=== PATIENT | male | born 1960 | race Caucasian/White ===

== ENCOUNTER → 2019-06-08 10:24 | Outpatient (BNVA) | payer MEDICARE, SELFPAY | PROVIDERS: Family Provider Nurse Practitioner Family; Visit Provider Nurse Practitioner Family | DX: J44.0 Chronic obstructive pulmonary disease with (acute) lower respiratory infection (principal); J06.9 Acute upper respiratory infection, unspecified; R51 Headache; R05 Cough | CPT/HCPCS: 87804 ==

== ENCOUNTER → 2019-06-30 16:12 | Outpatient (BNVA) | payer MEDICARE, SELFPAY | PROVIDERS: Family Provider Nurse Practitioner Family; Visit Provider Nurse Practitioner Family | DX: J44.0 Chronic obstructive pulmonary disease with (acute) lower respiratory infection (principal); R06.02 Shortness of breath | CPT/HCPCS: 87400 ==

== ENCOUNTER 2019-08-08 13:39 | Inpatient (IN) | payer MEDICARE, SELFPAY ==
[2019-08-08] VITALS (15 sets, daily range): BP systolic 117–135; BP diastolic 71–89; PULSE 70–107; RESP 16–19; TEMP 36.9–37.1; O2SAT 94–98; BMI 31.8
--- NOTE | 2019-08-08 13:50 | W.ED.FALL ---
HPI - Fall General: Chief Complaint: Fall Stated Complaint: fall Time Seen by Provider: 08/08/19 13:50 History of Present Illness: HPI Narrative: Pt states he fell because he got lightheaded and fell. He states over the past week he has been short of breath more than normal and he had to turn his o2 up from 3L to 4L. He states he has been coughing more and has had green sputum. He has felt feverish. He has had sick contacts. Doesnt think anyone has had COVID-19. He states he has pain in his shins since his fall but he always has that pain. His son found him on the floor and stated he seemed more lethargic. complaint: fall Fall from: standing Fall witnessed: no Place fall occurred: home Loss of consciousness: None Prolonged down time: unclear Symptoms prior to fall: lightheadedness and dizziness Location of injury: other (bilat shins) Severity: moderate Severity scale (1-10): 5 Quality: aching Associated symptoms-after fall: Reports difficulty walking, lightheadedness and short of breath; Denies abdominal pain or chest pain Review of Systems General: Reports: 10 or more systems reviewed and unremarkable except in HPI and below Const: Reports: fever, fatigue and malaise ENMT: Denies: throat pain Card: Reports: lightheadedness; Denies: chest pain or palpitations Resp: Reports: shortness of breath, productive cough and change in phlegm color GI: Denies: abdominal pain, nausea, vomiting, diarrhea, constipation or blood in stool Musc: Reports: extremity pain (chronic) Skin/Breast: Denies: rash Neuro: Reports: difficulty walking and other (lethargy) [facility] ED PFSH: Medical History COPD (chronic obstructive pulmonary disease) Hypertension Surgical History History of right hip replacement History of vasectomy Social History Smoking and tobacco status: current every day smoker Second hand smoke exposure: Yes Lives independently: Yes Household members: none Physical Exam Const: COMMON NORMALS: oriented x3; negative for alert EXAM LIMITATIONS: altered mental status (somnolence) GENERAL APPEARANCE: cooperative ORIENTATION/CONSCIOUSNESS: Yes oriented to person, Yes oriented to place and Yes oriented to time Neck/C-Spine: COMMON NORMALS: full ROM, no lymphadenopathy and supple CERVICAL SPINE: Yes cervical ROM normal, Yes normal cervical lordosis and No pain with cervical ROM Chest: COMMONS NORMALS: inspection of chest normal and palpation of chest normal CHEST: Yes symmetrical chest wall rise Resp: COMMON NORMALS: no use of accessory muscles EFFORT & INSPECTION: Yes able to speak in complete sentences, Yes respiratory distress (mild) and Yes pursed lip breathing AUSCULTATION: diminished lung sounds diffuse Cardio: COMMON NORMALS: regular rate and regular rhythm RATE: regular rate RHYTHM: regular rhythm GI: COMMON NORMALS: normal to inspection, nondistended, normoactive bowel sounds, soft to palpation and non-tender AUSCULTATION: Yes normoactive bowel sounds PALPATION: Yes soft : COMMON NORMALS: Yes no CVA tenderness BLADDER/KIDNEY EXAM: Yes no CVA tenderness and No CVA tenderness Back/Pelvis: COMMON NORMALS: no CVA tenderness and thoracic and lumbar spine normal to inspection GENERAL BACK: No CVA tenderness LUMBAR SPINE/LOWER BACK: Yes normal to inspection Extremity: GENERAL: Yes normal exam except as noted RIGHT LOWER EXTREMITY: Yes ankle joint (mild tenderness to papation but he states that is chronic, no sign of injur) Neuro: COMMON NORMALS: oriented x3 SENSORIUM/ORIENTATION: No alert, Yes oriented to person, Yes oriented to place and Yes oriented to time Procedures Laceration Laceration 1: Site: face (bridge of nose) Size (cm): 2 Description: linear Depth: simple, single layer Local Anesthetic: lidocaine 1% Amount of anesthesia used (mL): 2 Pre-repair: wound explored and irrigated extensively Skin layer closed with: nylon Size (cm): 4-0 Number of sutures: 2 Technique: simple, interrupted Course Vital Signs: Vital signs: Vital Signs Temperature 98.4 F 08/08/19 13:40 Pulse Rate 103 H 08/08/19 16:52 Respiratory Rate 16 08/08/19 15:49 Blood Pressure 117/71 08/08/19 13:40 Pulse Oximetry 95 08/08/19 16:52 MDM - Fall MDM Narrative: Medical decision making narrative: Pt is being testted for covid 19, his ph shows he is acidotic at 7.29. I have started him on bipap with a special viral filter , and he will need to be admitted to icu, he has a copd exac . Pt got up to go to the bathroom and fell on the floor and cracked his nose, laceration to brige of nose. he is alert and states he tripped and fell. I wll scan his head. I have sewed his lac up. Lab Data: Attestation: I reviewed the patient's lab results. Labs: Lab Results 08/08/19 08/08/19 08/08/19 Range/Units 13:15 13:15 14:53 WBC 13.0 H (4.0-10.0) 10^3/ uL RBC 4.91 (4.1-5.3) 10^6/u L Hgb 15.2 (11.7-16.6) g/dL Hct 48.6 (42.0-52.0) % MCV 99.0 H (80-94) fL MCH 31.0 (28.0-34.0) pg MCHC 31.3 (30.0-36.0) g/dL RDW 11.9 L (12.1-15.1) % Plt Count 182 (130-400) 10^3/c mm MPV 10.5 H (7.4-10.4) fL Neut % (Auto) 86.7 % Lymph % (Auto) 5.8 % [place] % (Auto) 6.6 % Eos % (Auto) 0.2 % Baso % (Auto) 0.3 % Neut # (Auto) 11.3 H (1.8-7.7) 10^3/u L Lymph # (Auto) 0.8 (0.8-4.8) 10^3/u L [place] # (Auto) 0.9 (0.2-0.9) 10^3/u L Eos # (Auto) 0.0 (0.0-0.8) 10^3/u L Baso # (Auto) 0.0 (0.0-0.1) 10^3/u L Nucleated RBC % (a uto) 0 % Nucleated RBCs # 0.0 /100WBC Specimen Type Arterial Sample Site Radial, right ABG pH 7.29 L (7.35-7.45) ABG pCO2 80.2 H* (35-45) mmHg ABG pO2 88.2 (80.0-100.0) mmH g ABG HCO3 38.3 H (22-26) mmol/L ABG O2 Saturation 97.1 ABG Base Excess 8.0 H (-2.0-2.0) mmol/ L Niranjan Test Pos A-a O2 Gradient 71.0 H (5-10) mmHg Hematocrit 46.6 (42-52) % Hgb O2 Saturation 95.2 (95-100) % Carboxyhemoglobin 1.1 (0.4-20.1) %THgb Methemoglobin 0.9 (0.4-1.5) % Total Hemoglobin 15.2 (14-18) g/dL Ionized Calcium 1.2 (1.1-1.4) mmol/L O2 Delivery Device Nc O2 Liters/Min 4.0 % FiO2 36.0 % Exhibit Electrician ID ed Sodium Cancelled 141.0 Potassium Cancelled 4.6 Chloride Cancelled Carbon Dioxide Cancelled Anion Gap Cancelled BUN Cancelled Creatinine Cancelled GFR Calculation Cancelled Glucose Cancelled 95.0 Calculated Osmolal ity Cancelled Calcium Cancelled Total Bilirubin Cancelled AST Cancelled ALT Cancelled Alkaline Phosphata se Cancelled Total Protein Cancelled Albumin Cancelled Globulin Cancelled Influenza Type A A g (Negative) Influenza Type B A g (Negative) 08/08/19 Range/Units 15:30 WBC (4.0-10.0) 10^3/ uL RBC (4.1-5.3) 10^6/u L Hgb (11.7-16.6) g/dL Hct (42.0-52.0) % MCV (80-94) fL MCH (28.0-34.0) pg MCHC (30.0-36.0) g/dL RDW (12.1-15.1) % Plt Count (130-400) 10^3/c mm MPV (7.4-10.4) fL Neut % (Auto) % Lymph % (Auto) % [place] % (Auto) % Eos % (Auto) % Baso % (Auto) % Neut # (Auto) (1.8-7.7) 10^3/u L Lymph # (Auto) (0.8-4.8) 10^3/u L [place] # (Auto) (0.2-0.9) 10^3/u L Eos # (Auto) (0.0-0.8) 10^3/u L Baso # (Auto) (0.0-0.1) 10^3/u L Nucleated RBC % (a uto) % Nucleated RBCs # /100WBC Specimen Type Sample Site ABG pH (7.35-7.45) ABG pCO2 (35-45) mmHg ABG pO2 (80.0-100.0) mmH g ABG HCO3 (22-26) mmol/L ABG O2 Saturation ABG Base Excess (-2.0-2.0) mmol/ L Niranjan Test A-a O2 Gradient (5-10) mmHg Hematocrit (42-52) % Hgb O2 Saturation (95-100) % Carboxyhemoglobin (0.4-20.1) %THgb Methemoglobin (0.4-1.5) % Total Hemoglobin (14-18) g/dL Ionized Calcium (1.1-1.4) mmol/L O2 Delivery Device O2 Liters/Min % FiO2 % Exhibit Electrician ID Sodium Potassium Chloride Carbon Dioxide Anion Gap BUN Creatinine GFR Calculation Glucose Calculated Osmolal ity Calcium Total Bilirubin AST ALT Alkaline Phosphata se Total Protein Albumin Globulin Influenza Type A A g Negative (Negative) Influenza Type B A g Negative (Negative) Imaging Data^: CXR: Radiologist's impression: XRay Report Signed Patient: Jihan Petit #: [id number] : 9Acct#:[id number] Age/Sex: 58 / MADM Date: 08/08/19 Loc: [facility]/Bed: Attending Dr: Ordering Provider/Ordering MD: Thania Rubio DO Date of Service: 08/08/19 Procedure(s): XR chest 1V portable [id number] Accession Number(s): [id number] Report Number: [id number] WS: [id number] CHEST XRAY TECHNIQUE: Portable chest. CLINICAL INFORMATION: pneumonia COMPARISON: July 07, 2017 FINDINGS: Heart: Normal cardiac silhouette. Lungs: Slight interstitial infiltrates in the lung bases laterally similar in appearance to 2018 and likely chronic. No focal pneumonia. Bones: Normal visualized bony structures. XR/XR chest 1V portable [id number] IMPRESSION: Mild chronic emphysematous changes with chronic appearing interstitial thickening in the lung bases. No focal pneumonia. Dictated By:Mio Kwon MD Signed By:Mio Kwon MDSigned Date/Time:08/08/19 6348 Discharge Plan Discharge Patient Disposition: Admitted As Inpatient Admit Provider: Ashlyn Covarrubias Clinical Impression: Falls frequently COPD (chronic obstructive pulmonary disease) Qualifiers: COPD type: COPD with acute exacerbation Qualified Code(s): J44.1 - Chronic obstructive pulmonary disease with (acute) exacerbation Head injury Qualifiers: Encounter type: initial encounter Qualified Code(s): S09.90XA - Unspecified injury of head, initial encounter Laceration of nose Qualifiers: Encounter type: initial encounter Qualified Code(s): S01.21XA - Laceration without foreign body of nose, initial encounter Respiratory failure, unspecified with hypercapnia Qualifiers: Chronicity: acute Qualified Code(s): J96.02 - Acute respiratory failure with hypercapnia Respiratory failure, unspecified with hypoxia Qualifiers: Chronicity: acute on chronic Qualified Code(s): J96.21 - Acute and chronic respiratory failure with hypoxia Condition: Stable Referrals: Key Voss FNP [Family Provider] - Coding Level of Care Code ED Continuing Education Instructor for Chg Fwd Exam Comprehensive
--- NOTE | 2019-08-08 14:01 | XR_ITS ---
WS: [id number] CHEST XRAY TECHNIQUE: Portable chest. CLINICAL INFORMATION: pneumonia COMPARISON: July 07, 2017 FINDINGS: Heart: Normal cardiac silhouette. Lungs: Slight interstitial infiltrates in the lung bases laterally similar in appearance to 2018 and likely chronic. No focal pneumonia. Bones: Normal visualized bony structures. XR/XR chest 1V portable [id number] IMPRESSION: Mild chronic emphysematous changes with chronic appearing interstitial thickeni ng in the lung bases. No focal pneumonia.
[2019-08-08 14:41] LABS: Basophils % 0.3 %; Eosinophils % 0.2 %; Hematocrit 48.6 % (42.0-52.0); Hemoglobin 15.2 g/dL (11.7-16.6); Lymphocytes # 0.8 10^3/uL (0.8-4.8); Lymphocytes % 5.8 %; Mean Corpuscular HGB Conc 31.3 g/dL (30.0-36.0); Mean Platelet Volume 10.5 fL (7.4-10.4); Monocytes # 0.9 10^3/uL (0.2-0.9); Monocytes % 6.6 %; Neutrophils # 11.3 10^3/uL (1.8-7.7); Neutrophils % 86.7 %; Nucleated Red Blood Cells % 0 %; Platelet Count 182 10^3/cmm (130-400); Red Blood Count 4.91 10^6/uL (4.1-5.3); Red Cell Distribution Width 11.9 % (12.1-15.1)
[2019-08-08] MEDS: albuterol 8 gm MDI 2 PUFF INHALATION ×3 (14:50→23:20)
[2019-08-08 15:05] LABS: ABG PH Result 7.29 (7.35-7.45); Arterial Blood Gas Hematocrit 46.6 % (42-52); Blood Gas Allen Test Pos; Blood Gas Sample Site Radial, right; Blood Gas Sample Type Arterial; Carboxyhemoglobin 1.1 %THgb (0.4-20.1); HCO3 ABG 38.3 mmol/L (22-26); HGB O2 Sat 95.2 % (95-100); Ionized Calcium Level - ABG 1.2 mmol/L (1.1-1.4); Methemoglobin 0.9 % (0.4-1.5); Oxygen Device NC; Oxygen Saturation ABG 97.1; PO2 ABG 88.2 mmHg (80.0-100.0); Potassium Level - ABG 4.6 mmol/L (3.5-5.0); Total Hemoglobin 15.2 g/dL (14-18)
[2019-08-08 15:06] LABS: ABG PCO2 80.2 mmHg (35-45)
--- NOTE | 2019-08-08 15:39 | CT_ITS ---
WS: [id number] CT HEAD TECHNIQUE: Noncontrast CT of the head obtained from the skullbase to the vertex. CLINICAL INFORMATION: trauma COMPARISON: None. DLP: 1471.[address] scans at [facility] use at least one of these dose optimization techniques: automat ed exposure control; mA and/or kV adjustment per patient size (includes targeted exams where dose is matched to clinical indication); or iterative reconstruction. FINDINGS: No evidence of intracranial hemorrhage or mass effect. Ventricular system and basal cisterns are hernandez nt. Mild small vessel changes with moderate parenchymal volume loss. Incidental retrocerebellar arach noid cyst. Normal perera-white differentiation. Mild mucosal thickening in the paranasal sinuses. Left to right nasal septal deviation. Mastoid air c ells are well aerated. CT/CT head wo con* [id number] IMPRESSION: 1. No evidence of intracranial hemorrhage or mass effect. 2. Mild small vessel changes. Moderate parenchymal volume loss. 3. No acute Intracranial findings.
[2019-08-08] MEDS: ipratropium-albuterol 3 mL Neb INHALATION (15:53)
[2019-08-08 16:24] LABS: Influenza A by IFA Negative (Negative)
[2019-08-08 16:25] LABS: Influenza B by IFA Negative (Negative)
[2019-08-08 16:37] LABS: ABG PH Result 7.33 (7.35-7.45)
[2019-08-08 16:38] LABS: BIPAP Y; HCO3 ABG 39.8 mmol/L (22-26); Oxygen Device BIPAP; Oxygen Saturation ABG 95.8; PO2 ABG 74.9 mmHg (80.0-100.0); Potassium Level - ABG 4.6 mmol/L (3.5-5.0)
[2019-08-08 16:39] LABS: Arterial Blood Gas Hematocrit 47.9 % (42-52)
[2019-08-08 17:09] LABS: Lactate (Lactic Acid level) 1.9 mmol/L (0.5-2.2)
[2019-08-08] MEDS: piperacillin-tazobactam 3.375 GM in sodium chloride 0.9% (plus) 50 ML IV (17:37)
[2019-08-08] MEDS: tetanus-dipt-pertussis 0.5 mL SDV IM (17:37)
--- NOTE | 2019-08-08 17:47 | P.HP_ITS ---
Providers/Chief Complaint Admitting Physician: Ashlyn Covarrubias MD Chief Complaint: ACUTE COPD EXACERBATION,HYPERCAPNIA, RESP FAILURE History of Present Illness Jh Petit is a 58 year old male with a PMH oxygen dependent COPD who is usually on 4 L/min at home. He was in his usual state of health until about 1 week ago when he has just not been feeling right . History is obtained by talking to the daughter as the patient is unable to give any details at this time while being on a BiPAP. Yesterday, the patient's daughter noted that he was more lethargic than usual and somewhat disoriented. This morning when some of his coworkers went to his house to get him to sign a check, he appeared to be more tremulous, disoriented and confused and was afterwards brought to the ER. Upon presentation here he was noted to have a fall which resulted in a laceration across his nose. This has since been corrected. ABG was notable for pH of 7.23 and a PCO2 of 80 subsequently which he was placed on a BiPAP. Since being placed on a BiPAP he appears to be more awake and alert at this time. Repeat blood gas has been drawn which shows a pH of 7.33 and PCO2 of 76. His daughter reports that since beginning of this year he has been having more frequent bouts of COPD exacerbation and has recently required 2 courses of levofloxacin in mid May and in mid June. He usually follows with his campus interviews intern at [place] Dr. Tom who prescribed him Daliresp 500 mics daily, however the patient felt that it made him have flulike symptoms and it is unclear if he was consistently taking this medication. Of note he was asked to taper down his steroids as he started the Daliresp, however the daughter does not believe he has actually tapered his steroids and is probably on prednisone 20 mg daily at this present time. There is no reported history of fever. Cough and expectoration appeared to be at his usual baseline. He does not have any known sick contacts, however he works in an [employer] shop and has been going to work intermittently where he has been in touch with other people. COVID-19 testing has been sent from the E . Influenza antigen test is negative. Chest x-ray does not show any gross consolidation. His medication history shows he is on 40 mg of Lasix daily, however this does not appear to be for CHF. Last echocardiogram dates back to 2017 and showed an LVEF of 55 to 60% and grade 1 diastolic dysfunction. Of note it also showed normal right ventricular size and systolic function and pressure. Right atrium was normal in size. He denies any complaints of chest pain. Last known cardiac history. Stress test in 2017 no significant coronary ischemia. Review of Systems General: Reports: 10 or more systems reviewed and unremarkable except in HPI and below Const: Denies: fever, chills or body aches Eyes: Denies: change in vision, blurry vision or photophobia ENMT: Denies: throat pain, enlarged tonsils, painful swallowing, hoarseness or nasal congestion Card: Reports: shortness of breath on exertion and shortness of breath when lying down; Denies: chest pain, palpitations, irregular heart rhythm, edema, swelling of feet/ankles, lightheadedness or pre-syncope Resp: Reports: shortness of breath; Denies: productive cough, non-productive cough, wheezing, stridor, pain on inspiration, change in phlegm color, coughing up blood or chest congestion GI: Denies: abdominal pain, nausea, vomiting, vomiting blood, coffee grounds in vomit, difficulty swallowing, heartburn/indigestion, diarrhea, constipation, cramping, change in stool character, blood in stool or black tarry stool : Denies: flank pain, painful urination, urinary frequency, urinary urgency, urinary hesitancy or blood in urine Musc: Denies: neck pain, back pain, extremity pain, joint swelling, joint warmth or deformity Neuro: Denies: headache, numbness in extremities, weakness in extremities, changes in sensation, difficulty walking, frequent falls, dizziness, vertigo, behavioral changes, slurred speech or seizure-like activity Psych: Denies: anxiety, depression, suicidal ideation or homicidal ideation Endo: Denies: excessive urination, excessive thirst, tired all the time, cold intolerance or hot flashes Kenny/Lymph: Denies: easy bruising or easy bleeding Medications/Allergies Home Medications Medication Instructions Recorded Confirmed Last Taken Type budesonide-formoterol HFA 160 2 puff INHALATION BID #10.2 gm 05/22/19 06/30/19 Unknown Rx mcg-4.5 mcg/actuation aerosol inhaler budesonide-formoterol HFA 160 2 puff INHALATION BID 06/08/19 06/30/19 Unknown History mcg-4.5 mcg/actuation aerosol inhaler lisinopril 2.5 mg tablet 2.5 mg PO DAILY 06/08/19 06/30/19 Unknown History ipratropium 0.5 mg-albuterol 3 mg 3 ml INHALATION QID #180 ml 06/30/19 06/30/19 Unknown Rx (2.5 mg base)/3 mL nebulization soln levofloxacin 500 mg tablet 500 mg PO DAILY #7 tab 06/30/19 06/30/19 Unknown Rx tamsulosin 0.4 mg capsule 0.8 mg PO DAILY #90 cap 07/05/19 Unknown Rx furosemide 40 mg tablet 40 mg PO QAM #30 tab 07/27/19 Unknown Rx prednisone 20 mg tablet 20 mg PO DAILY #90 tab 08/04/19 Unknown Rx albuterol sulfate 90 mcg/actuation 2 puff INHALATION Q4H PRN #18 gm 08/07/19 Unknown Rx aerosol inhaler Allergies Allergy/AdvReac Type Severity Reaction Status Date / Time azithromycin [From Zithromax] Allergy Unknown Verified 08/08/19 13:47 PFSH Acute PFSH: Medical History COPD (chronic obstructive pulmonary disease) Hypertension Surgical History History of right hip replacement History of vasectomy Social History Smoking and tobacco status: current every day smoker Second hand smoke exposure: Yes Lives independently: Yes Household members: none Vitals/I&O/Wt Last Vital Signs Temp 98.4 F 08/08/19 13:40 Pulse 103 H 08/08/19 16:52 Resp 16 08/08/19 15:49 BP 117/71 08/08/19 13:40 Pulse Ox 95 08/08/19 16:52 Weight last 48 hrs Weight 97.976 kg Physical Exam Narrative: EXAM NARRATIVE: GEN: Awake, alert, currently on Bipap via face mask, no acute distress HEENT: lacertaion across bridge of nose CVS: S1S2 N RS: B/L conducted sounds Abd: Soft, nt/nd , bs+ DIESEL SERVICE JOURNEYMAN: no focal neuro deficits Data : 08/08/19 13:15 08/08/19 13:15 Micro: Microbiology 08/08/19 15:43 Blood Culture - Preliminary Blood SPECIMEN COLLECTED 08/08/19 15:30 Blood Culture - Preliminary Blood SPECIMEN COLLECTED A&P Assessment and plan (1) COPD exacerbation: Status: Acute (2) Hypertension: Status: Acute (3) Respiratory failure, unspecified with hypercapnia: Status: Acute Qualifiers: Chronicity: acute Qualified Code(s): J96.02 - Acute respiratory failure with hypercapnia (4) Laceration of nose: Status: Acute Qualifiers: Encounter type: initial encounter Qualified Code(s): S01.21XA - Laceration without foreign body of nose, initial encounter (5) Falls frequently: Status: Acute Additional A&P Information Admit to ICU with isolation precautions # Acute on chronic COPD exacerbation - baseline uses 4lpm NC at all times - currently on Bipap 2/2 hypercapneic respiratory failure likely as a result of COPD exacerbation - Albuterol/ipratropium q4h - Budesonide inhalation BID -Methylprednisone 40mg iv q8h - doxycycline 100mg BID x 3-5 days - COVID 19 CAREER TECHNOLOGY TEACHER swab to rule out - CXR without gross consolidation # hypercapneic respiratory failure 2/2 COPD exacerbation BIPAP as needed now, continues, wean as needed RT eval and treat Typically uses CPAP at night # fall due to unsteady gait, likely contributed by C02 narcosis [address] head without acute intracranial findings PT eval and treat # HTN: continue home dose lisinopril 2.5mg po qd #BPH: continue Flomax DVT ppx: lovenox Code status: DNR/DNI, okay for ICU admission and pressors if needed. Discussed with sebastián Kennedy Medical Necessity Statement*: Anticipate > 2 midnight admission for hypercapneic respiratory failure Coding Level of Care Code Acute Wire Winding Machine Operator for Chg Fwd Diagnoses COPD exacerbation J44.1 Hypertension I10 Respiratory failure, unspecified with hypercapnia J96.02 Chronicity: acute Laceration of nose S01.21XA Encounter type: initial encounter Falls frequently R29.6
[2019-08-08 17:55] LABS: Alanine Aminotransferase 11 U/L (0-41); Albumin Level 4.3 g/dL (3.5-5.2); Alkaline Phosphatase 93 IU/L (40-130); Anion Gap 14.8 (5-19); Aspartate Amino Transferase 12 U/L (0-40); Blood Urea Nitrogen 19 mg/dL (8-23); Calcium 9.2 mg/dL (8.5-10.5); Carbon Dioxide 37 mmol/L (22-29); Chloride 95 mmol/L (98-107); Glomerular Filtration Rate 169.6 mL/min (90-130); Glucose 105 mg/dL (65-115); NT Pro B Type Natriuretic Pept 83 pg/mL (0-125); Osmolality Calculated 291 mOsm/kg (285-295); Potassium 4.8 mmol/L (3.5-5.1); Sodium 142 mmol/L (136-145); Total Bilirubin 0.7 mg/dL (0.15-1.2); Total Protein 6.3 g/dL (6.6-8.7)
[2019-08-08 19:13] LABS: Glucose Point of Care 91 mg/dL (70-110)
[2019-08-08] MEDS: enoxaparin 40 mg/0.4 mL Syringe SUBCUT (19:15)
[2019-08-08] MEDS: FUROsemide 10 mg/mL SDV 2mL 20 MG IVP (19:15)
[2019-08-08] MEDS: budesonide 0.5 mg/2 mL Neb INHALATION (20:17)
[2019-08-08 20:33] LABS: Glucose Point of Care 101 mg/dL (70-110)
--- NOTE | 2019-08-08 21:11 | PC.NURSE ---
Patient states that right leg weakness is present at baseline.
[2019-08-09] VITALS (18 sets, daily range): BP systolic 101–143; BP diastolic 67–93; PULSE 88–115; RESP 15–25; TEMP 36.6–37; O2SAT 90–96
--- NOTE | 2019-08-09 02:21 | PC.NURSE ---
Patient repositioned at suggestion of RN, patient declines to turn laterally and states I sleep on my back.
--- NOTE | 2019-08-09 02:23 | PC.NURSE ---
Patient declines PRN medication for knee pain at this time
[2019-08-09] MEDS: albuterol 8 gm MDI 2 PUFF INHALATION ×4 (04:32→23:15)
[2019-08-09 04:40] LABS: Basophils % 0.1 %; Hematocrit 46.8 % (42.0-52.0); Hemoglobin 14.6 g/dL (11.7-16.6); Lymphocytes # 0.3 10^3/uL (0.8-4.8); Mean Corpuscular HGB Conc 31.2 g/dL (30.0-36.0); Mean Corpuscular Hemoglobin 30.1 pg (28.0-34.0); Mean Corpuscular Volume 96.5 fL (80-94); Mean Platelet Volume 9.9 fL (7.4-10.4); Monocytes # 0.1 10^3/uL (0.2-0.9); Monocytes % 0.4 %; Neutrophils # 14.1 10^3/uL (1.8-7.7); Neutrophils % 97.2 %; Nucleated Red Blood Cells % 0 %; Platelet Count 163 10^3/cmm (130-400); Red Blood Count 4.85 10^6/uL (4.1-5.3); Red Cell Distribution Width 11.7 % (12.1-15.1); White Blood Count 14.5 10^3/uL (4.0-10.0)
[2019-08-09 04:50] LABS: ABG PH Result 7.38 (7.35-7.45); Arterial Blood Gas Hematocrit 46.3 % (42-52); Base Excess ABG 11.1 mmol/L (-2.0-2.0); Blood Gas Allen Test Pos; Blood Gas Sample Site Radial, right; Blood Gas Sample Type Arterial; HCO3 ABG 39.5 mmol/L (22-26); Oxygen Device OXY MASK; PO2 ABG 86.1 mmHg (80.0-100.0)
[2019-08-09 05:05] LABS: Alanine Aminotransferase 11 U/L (0-41); Alkaline Phosphatase 85 IU/L (40-130); Anion Gap 16.6 (5-19); Aspartate Amino Transferase 12 U/L (0-40); Blood Urea Nitrogen 19 mg/dL (8-23); Carbon Dioxide 36 mmol/L (22-29); Chloride 93 mmol/L (98-107); Globulin 1.9 g/dL (1.3-4.6); Glomerular Filtration Rate 219.4 mL/min (90-130); Glucose 134 mg/dL (65-115); Osmolality Calculated 290 mOsm/kg (285-295); Potassium 4.6 mmol/L (3.5-5.1); Sodium 141 mmol/L (136-145); Total Bilirubin 0.6 mg/dL (0.15-1.2); Total Protein 5.9 g/dL (6.6-8.7)
[2019-08-09 05:31] LABS: ABG PCO2 67.5 mmHg (35-45)
[2019-08-09 05:37] LABS: Procalcitonin 0.07 ng/mL (0-0.5)
[2019-08-09 07:39] LABS: Alveolar-Arterial Oxygen Gradi 87.9 mmHg (5-10); HGB O2 Sat 94.4 % (95-100); Ionized Calcium Level - ABG 1.2 mmol/L (1.1-1.4); Methemoglobin 0.5 % (0.4-1.5); Total Hemoglobin 15.6 g/dL (14-18)
[2019-08-09 08:21] LABS: Glucose Point of Care 132 mg/dL (70-110)
[2019-08-09] MEDS: lisinopril 2.5 mg Tablet PO (08:37)
[2019-08-09] MEDS: doxycycline 100 mg Tablet PO ×2 (08:37→18:07)
[2019-08-09] MEDS: tamsulosin 0.4 mg Capsule 0.8 MG PO (08:37)
[2019-08-09 10:31] LABS: Glucose Point of Care 129 mg/dL (70-110)
--- NOTE | 2019-08-09 10:31 | PC.RESP ---
Pulmonary Rehab and Smoking Cessation information sent to patient along with a schedule of classes.
--- NOTE | 2019-08-09 14:52 | PM.PN ---
Subjective Subjective: Interval history: improved today, ABG with pc02 at 67, ph normalized. Off bipap since overnight. Currently on 3.5lpm via oxymask, doing well Medications: Reviewed: Yes Vitals/I&O/Wt Last Vital Signs Temp 98.6 F 08/09/19 14:00 Pulse 96 08/09/19 14:00 Resp 17 08/09/19 14:00 BP 128/91 08/09/19 14:00 Pulse Ox 91 08/09/19 14:00 08/08/19 08/09/19 08/09/19 22:59 06:59 14:59 Intake Total 120 / 120 Output Total 600 / 600 400 / 400 Balance -600 / -600 -280 / -280 Weight last 48 hrs Weight 94.574 kg Weight 97.976 kg Physical Exam Narrative: EXAM NARRATIVE: GEN: Awake, alert and oriented, no acute distress CVS: S1S2 N RS: CTA B/L Abd: Soft, nt/nd , bs+ CUSTOMER SOLUTIONS ARCHITECT: no focal neuro deficits Data : 08/09/19 04:10 08/09/19 04:10 Micro: Microbiology 08/08/19 15:43 Blood Culture - Preliminary Blood SPECIMEN COLLECTED 08/08/19 15:30 Blood Culture - Preliminary Blood SPECIMEN COLLECTED A&P Assessment and plan (1) COPD exacerbation: Status: Acute (2) Hypertension: Status: Acute (3) Respiratory failure, unspecified with hypercapnia: Status: Acute Qualifiers: Chronicity: acute Qualified Code(s): J96.02 - Acute respiratory failure with hypercapnia (4) Laceration of nose: Status: Acute Qualifiers: Encounter type: initial encounter Qualified Code(s): S01.21XA - Laceration without foreign body of nose, initial encounter (5) Falls frequently: Status: Acute Additional A&P Information Admit to ICU with isolation precautions # Acute on chronic COPD exacerbation - baseline uses 4lpm NC at all times - required bipap yesterday, off since overnight, doing well - Albuterol/ipratropium q4h - Budesonide inhalation BID -Methylprednisone 40mg iv q8h---> taper to q12h - doxycycline 100mg BID x 3-5 days - COVID 19 ruled out - CXR without gross consolidation # hypercapneic respiratory failure 2/2 COPD exacerbation BIPAP as needed now, continues, wean as needed RT eval and treat Typically uses CPAP at night # fall due to unsteady gait, likely contributed by C02 [address] head without acute intracranial findings PT eval and treat Hip x ray for pain # HTN: continue home dose lisinopril 2.5mg po qd #BPH: continue Flomax DVT ppx: lovenox Code status: DNR/DNI, okay for ICU admission and pressors if needed. Discussed with daughter Dipesh Kennedy Medical Necessity Statement*: COPD exacerbation with hypercapneic resp failure, improving today, transfer out of ICU Coding Level of Care Code Acute Rack Puncher for g Fwd Diagnoses COPD exacerbation J44.1 Hypertension I10 Respiratory failure, unspecified with hypercapnia J96.02 Chronicity: acute Laceration of nose S01.21XA Encounter type: initial encounter Falls frequently R29.6
--- NOTE | 2019-08-09 14:55 | XR_ITS ---
WS: [id number] HIPS BILATERAL TECHNIQUE: 5 views bilateral hips Including pelvis CLINICAL INFORMATION: fall COMPARISON: None. FINDINGS: Normal-appearing right KARAN appears well seated. No evidence of hardware loosening. Mild degenerative arthritis left hip with joint space narrowing. XR/XR hip BI 3-4V wo/w pel [id number] IMPRESSION: 1. Normal-appearing right KARAN. 2. Mild degenerative arthritis left hip, no acute fractures
[2019-08-09 15:17] LABS: Blood Gas Allen Test Pos; Blood Gas Sample Site Radial, right; Blood Gas Sample Type Arterial
[2019-08-09 15:20] LABS: ABG PCO2 76.3 mmHg (35-45)
--- NOTE | 2019-08-09 15:29 | PC.NURSE ---
report called to SANJEEV Perez. Patient will be transferred to room 259-1
--- NOTE | 2019-08-09 15:51 | PC.NURSE ---
patient taken to room 259-1 via wheelchair
[2019-08-09 17:27] LABS: Glucose Point of Care 130 mg/dL (70-110)
[2019-08-09] MEDS: enoxaparin 40 mg/0.4 mL Syringe SUBCUT (17:41)
[2019-08-09] MEDS: FUROsemide 10 mg/mL SDV 2mL 20 MG IVP (18:25)
--- NOTE | 2019-08-09 19:05 | PC.NURSE ---
Introduction of staff and report received, aidet.
[2019-08-09 20:39] LABS: Glucose Point of Care 217 mg/dL (70-110)
[2019-08-09] MEDS: budesonide 0.5 mg/2 mL Neb INHALATION (23:15)
[2019-08-10] VITALS (17 sets, daily range): BP systolic 92–129; BP diastolic 56–81; PULSE 69–146; RESP 16–20; TEMP 36.6–36.9; O2SAT 90–96
[2019-08-10] MEDS: albuterol 8 gm MDI 2 PUFF INHALATION ×5 (02:59→20:02)
[2019-08-10 05:36] LABS: Basophils % 0.1 %; Hematocrit 41.5 % (42.0-52.0); Hemoglobin 13.8 g/dL (11.7-16.6); Lymphocytes # 0.3 10^3/uL (0.8-4.8); Lymphocytes % 2.7 %; Mean Corpuscular HGB Conc 33.3 g/dL (30.0-36.0); Mean Corpuscular Hemoglobin 31.4 pg (28.0-34.0); Mean Corpuscular Volume 94.5 fL (80-94); Mean Platelet Volume 10.2 fL (7.4-10.4); Monocytes # 0.3 10^3/uL (0.2-0.9); Monocytes % 2.8 %; Neutrophils # 11.5 10^3/uL (1.8-7.7); Neutrophils % 93.9 %; Nucleated Red Blood Cells % 0 %; Platelet Count 157 10^3/cmm (130-400); Red Blood Count 4.39 10^6/uL (4.1-5.3); Red Cell Distribution Width 11.9 % (12.1-15.1); White Blood Count 12.3 10^3/uL (4.0-10.0)
[2019-08-10 05:59] LABS: Alanine Aminotransferase 12 U/L (0-41); Albumin Level 3.8 g/dL (3.5-5.2); Alkaline Phosphatase 67 IU/L (40-130); Anion Gap 15.2 (5-19); Aspartate Amino Transferase 11 U/L (0-40); Blood Urea Nitrogen 24 mg/dL (8-23); Calcium 9.1 mg/dL (8.5-10.5); Carbon Dioxide 36 mmol/L (22-29); Chloride 91 mmol/L (98-107); Globulin 2.4 g/dL (1.3-4.6); Glomerular Filtration Rate 169.6 mL/min (90-130); Glucose 159 mg/dL (65-115); Osmolality Calculated 286 mOsm/kg (285-295); Potassium 4.2 mmol/L (3.5-5.1); Sodium 138 mmol/L (136-145); Total Bilirubin 0.6 mg/dL (0.15-1.2); Total Protein 6.2 g/dL (6.6-8.7)
[2019-08-10 06:30] LABS: Glucose Point of Care 136 mg/dL (70-110)
[2019-08-10] MEDS: lisinopril 2.5 mg Tablet PO (08:18)
[2019-08-10] MEDS: tamsulosin 0.4 mg Capsule 0.8 MG PO (08:18)
[2019-08-10] MEDS: doxycycline 100 mg Tablet PO ×2 (08:18→17:03)
[2019-08-10] MEDS: budesonide 0.5 mg/2 mL Neb INHALATION ×2 (08:30→20:01)
[2019-08-10 08:36] LABS: Coronavirus Lab Test PTC SEE COMMENTS
[2019-08-10 11:13] LABS: Glucose Point of Care 219 mg/dL (70-110)
--- NOTE | 2019-08-10 16:00 | ECG_ITS ---
Measurements Intervals [place] Rate: 133 P: CT: 0 QRS: 15 QRSD: 80 T: 46 QT: 276 QTc: 411 ATRIAL FIBRILLATION WITH RAPID VENTRICULAR RESPONSE ABNORMAL RHYTHM ECG Compared to ECG 07/08/2017 05:55:04 Sinus rhythm no longer present Electronically Signed On 08-10-2019 18:13:39 CDT by Mehreen Polanco M.D. [id number]
[2019-08-10] MEDS: metoprolol tartrate 1 mg/1 mL SDV 5 mL 2.5 MG IV (16:08)
--- NOTE | 2019-08-10 16:21 | PC.NURSE ---
Tachycardia patients telemetry are showing tachycardia, upon checking on patient he was asymptomatic, with no pain, sob and resting in bed watching TV. I checked telemetry wires and changed box. Obtained manual HR which was 100. obtained manual VS 100/62 with HR 148 and pulse ox 94% on O2. Dr. Covarrubias notified and gave VORB of 2.5mg Metoprolol IVP and EKG and check in 15 min from administration recheck BP and if not resolved give another dose of 2.5 mg Metoprolol IVP. ONI, SANJEEV
--- NOTE | 2019-08-10 16:26 | P.PN_ITS ---
Subjective Subjective: Interval history: Breathing improved significantly today. Has some wheezing on auscultation but states he feels close to his baseline. 02 sat between 93-95% on 4lpm NC (baseline). This afternoon developed episode of A fib with RVR. patient is unsure if he has a past h/o same in the past. Denies any chest pain, dyspnea or papitations during this episode. BP stable. Medications: Reviewed: Yes Vitals/I&O/Wt Last Vital Signs Temp 98.2 F 08/10/19 15:54 Pulse 146 H 08/10/19 15:54 Resp 17 08/10/19 15:54 BP 102/64 08/10/19 15:54 Pulse Ox 93 08/10/19 15:54 08/10/19 08/10/19 08/10/19 06:59 14:59 22:59 Intake Total 240 / 360 980 / 980 Balance 240 / -710 980 / 980 Weight last 48 hrs Weight 92.59 kg Weight 94.574 kg Physical Exam Narrative: EXAM NARRATIVE: GEN: Awake, alert and oriented, no acute distress CVS: S1S2 N RS: Scattered B/L wheezing all areas Abd: Soft, nt/nd , bs+ TRAFFIC RATE COMPUTER: no focal neuro deficits EXT: No LE edema Data : 08/10/19 04:48 08/10/19 04:48 Micro: Microbiology 08/08/19 15:43 Blood Culture - Preliminary Blood NEGATIVE TO DATE 08/08/19 15:30 Blood Culture - Preliminary Blood NEGATIVE TO DATE A&P Assessment and plan (1) COPD exacerbation: Status: Acute (2) Hypertension: Status: Acute (3) Respiratory failure, unspecified with hypercapnia: Status: Acute Qualifiers: Chronicity: acute Qualified Code(s): J96.02 - Acute respiratory failure with hypercapnia (4) Laceration of nose: Status: Acute Qualifiers: Encounter type: initial encounter Qualified Code(s): S01.21XA - Laceration without foreign body of nose, initial encounter (5) Falls frequently: Status: Acute Additional A&P Information # Acute on chronic COPD exacerbation - baseline uses 4lpm NC at all times - no longer needing Bipap today, uses CPAP at night - Albuterol/ipratropium q4h - Budesonide inhalation BID -Methylprednisone 40mg iv q12h , will continue to taper - doxycycline 100mg BID x 3-5 days - COVID 19 ruled out - CXR without gross consolidation # hypercapneic respiratory failure 2/2 COPD exacerbation BIPAP as needed RT eval and treat Typically uses CPAP at night # fall due to unsteady gait, likely contributed by C02 narcosis CT head without acute intracranial findings PT eval and treat Hip x ray for pain Face laceration healing well over nose # A fib with RVR s/p 5mg IVP metoprolol without response, started on cardizem 30mg po q6h Holding offf on starting a/c for now given recurrent falls # HTN: continue home dose lisinopril 2.5mg po qd #BPH: continue Flomax DVT ppx: lovenox Code status: DNR/DNI, okay for ICU admission and pressors if needed. Discussed with daughter Dipesh Kennedy Medical Necessity Statement*: developed Afib with RVR today Coding Level of Care Code Acute Make Up Editor for [facility] Fwd Diagnoses COPD exacerbation J44.1 Hypertension I10 Respiratory failure, unspecified with hypercapnia J96.02 Chronicity: acute Laceration of nose S01.21XA Encounter type: initial encounter Falls frequently R29.6
[2019-08-10 16:51] LABS: Glucose Point of Care 120 mg/dL (70-110)
[2019-08-10] MEDS: metoprolol tartrate 1 mg/1 mL SDV 5 mL 5 MG (17:02)
[2019-08-10] MEDS: enoxaparin 40 mg/0.4 mL Syringe SUBCUT (17:03)
[2019-08-10] MEDS: dilTIAZem 30 mg Tablet PO (18:06)
[2019-08-10 19:21] LABS: Troponin(5th) Baseline 16 ng/mL (0-15)
[2019-08-10 20:42] LABS: Troponin 5 2HR 15.83 ng/mL (0-15)
[2019-08-10 20:43] LABS: Troponin 5 2HR Delta -0.17 ABS# (0-10)
[2019-08-10 20:45] LABS: Glucose Point of Care 149 mg/dL (70-110)
[2019-08-11] VITALS (12 sets, daily range): BP systolic 105–124; BP diastolic 65–76; PULSE 69–109; RESP 16–20; TEMP 36.2–36.8; O2SAT 91–97
[2019-08-11] MEDS: dilTIAZem 30 mg Tablet PO ×3 (00:20→12:04)
[2019-08-11 01:02] LABS: Hematocrit 41.9 % (42.0-52.0); Hemoglobin 13.6 g/dL (11.7-16.6); Lymphocytes # 0.3 10^3/uL (0.8-4.8); Lymphocytes % 2.1 %; Mean Corpuscular HGB Conc 32.5 g/dL (30.0-36.0); Mean Corpuscular Hemoglobin 30.8 pg (28.0-34.0); Mean Corpuscular Volume 94.8 fL (80-94); Mean Platelet Volume 10.1 fL (7.4-10.4); Monocytes # 0.7 10^3/uL (0.2-0.9); Monocytes % 4.7 %; Neutrophils # 13.1 10^3/uL (1.8-7.7); Neutrophils % 92.8 %; Nucleated Red Blood Cells % 0 %; Platelet Count 143 10^3/cmm (130-400); Red Blood Count 4.42 10^6/uL (4.1-5.3); Red Cell Distribution Width 11.9 % (12.1-15.1); White Blood Count 14.1 10^3/uL (4.0-10.0)
[2019-08-11 01:14] LABS: Alanine Aminotransferase 13 U/L (0-41); Albumin Level 3.7 g/dL (3.5-5.2); Alkaline Phosphatase 69 IU/L (40-130); Anion Gap 11.1 (5-19); Aspartate Amino Transferase 12 U/L (0-40); Blood Urea Nitrogen 21 mg/dL (8-23); Calcium 8.9 mg/dL (8.5-10.5); Carbon Dioxide 36 mmol/L (22-29); Chloride 93 mmol/L (98-107); Globulin 2.2 g/dL (1.3-4.6); Glomerular Filtration Rate 169.6 mL/min (90-130); Glucose 198 mg/dL (65-115); Osmolality Calculated 284 mOsm/kg (285-295); Potassium 4.1 mmol/L (3.5-5.1); Sodium 136 mmol/L (136-145); Total Bilirubin 0.5 mg/dL (0.15-1.2); Total Protein 5.9 g/dL (6.6-8.7)
[2019-08-11 01:17] LABS: Troponin 5 6HR 15.09 ng/mL (0-15)
[2019-08-11 01:26] LABS: Troponin 5 6HR Delta -0.91 ng/L (0-12)
[2019-08-11 06:32] LABS: Glucose Point of Care 144 mg/dL (70-110)
[2019-08-11] MEDS: budesonide 0.5 mg/2 mL Neb INHALATION ×2 (08:21→21:27)
[2019-08-11] MEDS: albuterol 8 gm MDI 2 PUFF INHALATION ×3 (08:21→15:49)
--- NOTE | 2019-08-11 09:15 | PC.SOCIAL ---
IMM Page 2 of IMM given to patient and number to [employer] [facility] advantage plan provided. Initialed, dated, and timed and placed in chart.
[2019-08-11] MEDS: doxycycline 100 mg Tablet PO ×2 (09:47→18:51)
[2019-08-11] MEDS: tamsulosin 0.4 mg Capsule 0.8 MG PO (09:48)
[2019-08-11 11:21] LABS: Glucose Point of Care 207 mg/dL (70-110)
--- NOTE | 2019-08-11 13:52 | P.PN_ITS ---
Subjective Subjective: Interval history: Patient developed an episode of A. fib with RVR last evening with heart rate going up to 160s 170s. He was given metoprolol IV pushes however without any significant response. He has since been started on p.o. Cardizem and currently heart rate has ranged between 60-90. Intermittently when he moves heart rate does jump up to 150s and 160s with activity. Troponins drawn yesterday were negative. But additional history obtained today from patient and his daughter, he does have a history of atrial fibrillation going back at least 3 years. He endorses feeling intermittent palpitations, however has not been on any rate limiting medications. He states he was started on a medication about 3 years ago but then his refills ran out and he never took the medication again. He is unsure if he has ever been on anticoagulation. His pharmacy records dates back to 2018 and did not show that he was ever prescribed an anticoagulation in the past. Last echocardiogram from 2017 was with LVEF of 55 to 60% without wall motion abnormalities. Patient remains mostly asymptomatic during these.. He does not know if some of his falls may potentially correlate with episodic palpitations. Medications: Reviewed: Yes Vitals/I&O/Wt Last Vital Signs Temp 97.8 F 08/11/19 11:17 Pulse 94 08/11/19 12:31 Resp 16 08/11/19 12:31 BP 114/70 08/11/19 11:17 Pulse Ox 94 08/11/19 12:31 08/10/19 08/11/19 08/11/19 22:59 06:59 14:59 Intake Total 960 / 1940 120 / 120 Output Total 750 / 750 515 / 1265 Balance 210 / 1190 -515 / 675 120 / 120 Weight last 48 hrs Weight 93.157 kg Weight 92.59 kg Physical Exam Narrative: EXAM NARRATIVE: GEN: Awake, alert and oriented, no acute distress, sitting in bed, breathing comfortably. HEENT currently on a nasal cannula at 3.5 L/min, which is close to his baseline. CVS: S1S2 N RS: Bilateral inframaxillary areas with scattered crypts. Bilateral infrascapular areas with movement wheezing. Abd: Soft, nt/nd , bs+ ASSISTANT SITE MANAGER: no focal neuro deficits Extremities no gross pitting edema. Data : 08/11/19 00:35 08/11/19 00:35 A&P Assessment and plan (1) COPD exacerbation: Status: Acute (2) Hypertension: Status: Acute (3) Respiratory failure, unspecified with hypercapnia: Status: Acute Qualifiers: Chronicity: acute Qualified Code(s): J96.02 - Acute respiratory failure with hypercapnia (4) Laceration of nose: Status: Acute Qualifiers: Encounter type: initial encounter Qualified Code(s): S01.21XA - Laceration without foreign body of nose, initial encounter (5) Falls frequently: Status: Acute (6) Atrial fibrillation with rapid ventricular response: Status: Acute Additional A&P Information # Acute on chronic COPD exacerbation - baseline uses 4lpm NC at all times - no longer needing Bipap today, uses CPAP at night - Albuterol/ipratropium q4h - Budesonide inhalation BID -Methylprednisone 40mg iv q12h , will continue to taper. machine overhauler to po prednisone 40mg today - doxycycline 100mg BID x 3-5 days - COVID 19 ruled out - CXR without gross consolidation - Wheezing and crepts on exam today, lasix was held yesetrday due to borderline BP. Iv lasix 20mg now # hypercapneic respiratory failure 2/2 COPD exacerbation BIPAP as needed RT eval and treat Typically uses CPAP at night # fall due to unsteady gait, likely contributed by C02 narcosis CT head without acute intracranial findings PT eval and treat Hip x ray for pain without any fracture Face laceration healing well over nose, remove sutures at 7 days # A fib with RVR s/p 5mg IVP metoprolol without response, started on cardizem 30mg po q6h Heart rate better controlled now mostly between 69-90 for the most part however with mild activity increases to 1 50- 160 bpm. We will titrate up the Cardizem 60 mg every 6 hours p.o. and then switch to sustained-release upon discharge. His Chads2-vasc score is 1 for HTN, will suggest antiplatelet for now, holf off on a/c , kenisha given h/o falls and current laceration # HTN: continue home dose lisinopril 2.5mg po qd #BPH: continue Flomax DVT ppx: lovenox Code status: DNR/DNI, okay for ICU admission and pressors if needed. Discussed with daughter Dipesh and patient Attestations Medical Necessity Statement*: Atrial fibrillation with RVR Coding Level of Care Code Acute Lawn Care Worker for g Fwd Diagnoses COPD exacerbation J44.1 Hypertension I10 Respiratory failure, unspecified with hypercapnia J96.02 Chronicity: acute Laceration of nose S01.21XA Encounter type: initial encounter Falls frequently R29.6 Atrial fibrillation with rapid ventricular response I48.91
[2019-08-11] MEDS: FUROsemide 10 mg/mL SDV 2mL 20 MG IVP (15:14)
[2019-08-11 17:09] LABS: Glucose Point of Care 124 mg/dL (70-110)
[2019-08-11] MEDS: enoxaparin 40 mg/0.4 mL Syringe SUBCUT (18:51)
[2019-08-11] MEDS: dilTIAZem 60 mg Tablet PO (18:51)
[2019-08-11 21:09] LABS: Glucose Point of Care 154 mg/dL (70-110)
[2019-08-11] MEDS: ipratropium-albuterol 3 mL Neb INHALATION (21:27)
[2019-08-12] VITALS (11 sets, daily range): BP systolic 105–124; BP diastolic 68–75; PULSE 65–98; RESP 17–20; TEMP 36.6–36.8; O2SAT 91–96
[2019-08-12] MEDS: dilTIAZem 60 mg Tablet PO ×3 (00:06→12:29)
[2019-08-12] MEDS: ipratropium-albuterol 3 mL Neb INHALATION ×2 (01:21→05:09)
[2019-08-12 06:19] LABS: Glucose Point of Care 138 mg/dL (70-110)
[2019-08-12] MEDS: albuterol 8 gm MDI 2 PUFF INHALATION ×2 (07:33→11:29)
[2019-08-12] MEDS: budesonide 0.5 mg/2 mL Neb INHALATION (07:34)
[2019-08-12] MEDS: predniSONE 20 mg Tablet 40 MG PO (09:32)
[2019-08-12] MEDS: doxycycline 100 mg Tablet PO (09:32)
[2019-08-12] MEDS: aspirin 325 mg Tablet PO (09:32)
[2019-08-12] MEDS: tamsulosin 0.4 mg Capsule 0.8 MG PO (09:32)
--- NOTE | 2019-08-12 11:24 | P.DS_ITS ---
Discharge Providers Date of Admission: 08/08/19 15:46 Date of Discharge: August 12, 2019 Attending Provider at Admission: Ashlyn Covarrubias MD Attending Provider at Discharge: Ashlyn Covarrubias MD Diagnoses at Discharge Discharge Diagnosis (1) COPD exacerbation: Status: Acute (2) Hypertension: Status: Acute (3) Respiratory failure, unspecified with hypercapnia: Status: Acute Qualifiers: Chronicity: acute Qualified Code(s): J96.02 - Acute respiratory failure with hypercapnia (4) Laceration of nose: Status: Acute Qualifiers: Encounter type: initial encounter Qualified Code(s): S01.21XA - Laceration without foreign body of nose, initial encounter (5) Falls frequently: Status: Acute (6) Atrial fibrillation with rapid ventricular response: Status: Acute Reason for Visit Reason for Visit: Reason For Visit: ACUTE COPD EXACERBATION,HYPERCAPNIA, RESP FAILURE Hospital Course Discharge Summary: Jh Petit is a 58 year old male with a PMH oxygen dependent COPD who is usually on 4 L/min at home. He was brought to the hospital after being noted to be more lethargic and confused. After being brought to the ED patient was noted to have CO2 narcosis pH of 7.33 and CO2 of 76. He was placed on BiPAP and within a few hours had significant improvement. COVID-19 years negative. Of note he had been having more frequent exacerbations of the COPD since at least May of this year. His development lead had started him on Daliresp recently however the patient had not started taking it. Patient after being lucid says that it is highly possible his oxygen may have fallen off at night and this led up to the disorientation in the morning. His chest x-ray did not show any gross consolidation. He was treated with supportive measures directed towards COPD exacerbation including BiPAP, IV steroids and a short course of doxycycline. A day prior to discharge she developed A. fib with RVR. It is unknown if this was a new finding for him. Patient states that he was first diagnosed with a 3 years ago in the setting of having had a recent orthopedic surgery, he was also prescribed a rate control medication but he had not refilled it in at least the last 2 years or so. He was started on Cardizem with good control of his heart rate. At the time of discharge his heart rate is ranging between 70-90. He remains asymptomatic. Chads vas score is 1. Additionally the day he came in he had fallen in the ER and has a laceration across his nose which was sutured. This is healing well. Because of the above reasons it was decided to defer anticoagulation until he can meet with cardiology. He was discharged on full dose aspirin 325 mg in the interim. M ains on prednisone 20 mg/day for his prior medical history. He is encouraged to discuss with his development lead to add on PCP prophylaxis with Bactrim. Physical Exam Narrative: EXAM NARRATIVE: GEN: Awake, alert and oriented, no acute distress CVS: S1S2 N RS: CTA B/L Abd: Soft, nt/nd , bs+ LANDSCAPE ACCOUNT MANAGER: no focal neuro deficits Discharge Data Data Completed and Pending: Completed Studies During Hospitalization Category Date Time Status CT head wo con* 7 0450 Stat Cat Scan 08/08/19 15:39 Completed XR chest 1V stephanie ble 13212 Stat Exams 08/08/19 14:01 Completed XR hip BI 3-4V wo /w pel [id number] Routi ne Exams 08/09/19 14:55 Completed Pending at discharge Category Date Time Status Blood Culture Sta t Lab 08/08/19 15:43 Results Labs from last 24 hours 08/12/19 08/11/19 08/11/19 06:15 21:06 16:45 POC Glucose 138 154 124 Vitals: Last Vital Signs Temp 98.3 F 08/12/19 11:03 Pulse 97 08/12/19 11:03 Resp 18 08/12/19 11:03 BP 105/75 08/12/19 11:03 Pulse Ox 95 08/12/19 11:03 Discharge Plan Discharge Patient Disposition: Home Health Service Condition: Stable Prescriptions: New aspirin 325 mg Tablet 325 mg PO DAILY 30 Days Qty: 30 RF: 0 Cardizem CD 120 mg capsule,extended release 24hr 120 mg PO Q12H 30 Days Qty: 60 RF: 0 omeprazole 40 mg capsule,delayed release(DR/EC) 40 mg PO DAILY 30 Days Qty: 30 RF: 0 Continued budesonide-formoterol 160-4.5 mcg/actuation HFA aerosol inhaler 2 puff INHALATION BID Qty: 10.2 RF: 1 ipratropium-albuterol 0.5 mg-3 mg(2.5 mg base)/3 mL solution for nebulization 3 ml INHALATION QID Qty: 180 RF: 3 tamsulosin 0.4 mg capsule 0.8 mg PO DAILY Qty: 90 RF: 0 furosemide 40 mg tablet 40 mg PO QAM Qty: 30 RF: 0 prednisone 20 mg tablet 20 mg PO DAILY Qty: 90 RF: 0 albuterol sulfate 90 mcg/actuation HFA aerosol inhaler 2 puff INHALATION Q4H PRN (Reason: shortness of breath or wheezing) Qty: 18 RF: 2 Discontinued lisinopril 2.5 mg tablet 2.5 mg PO DAILY RF: 0 Discharge Orders: Discharge Order (Routine); Ordered 08/12/19 Ordered By: Ashlyn Covarrubias Other Ambulatory Orders: DME: Walker (Order) Location: None Selected Ordered By: Ashlyn Covarrubias Referrals: development leadeleuterio [Other] - 7-10 days ([facility] If you have any questions or concerns, you may call them at the number provided.) [facility] [Other] (Your walker order has been sent to [facility]. Once you are home, please call their on-call staff member, Diane, and she will have your walker delivered to your house. Her direct number is: [phone]. ) [facility] [Outside] (Your home health provider is [facility]. They will contact you within 1-2 days to set up a time to begin home health services. If you do not hear from them in 1-2 days, you may call them at the number provided. You may also call [facility] with any questions or concerns at [phone] ext. [phone].) Key Voss FNP [Family Provider] - 4-7 days (suture removal ) Karin Day MD [Physician] - 7-10 days (new onset A fib ) Discharge Diet: Usual diet Discharge Activity: Resume usual activity and Use walker/crutches as instructed Patient Instructions: Diltiazem (By mouth), Aspirin (By mouth), Omeprazole (By mouth), Chronic Obstructive Pulmonary Disease (GEN), COPD Stoplight, Fall Prevention Activity Restrictions/Additional Instructions: restrict caffeine intake. Monitor BP and HR twice daily over the next week Suture removal over nose early next week with PCP/urgent care Use walker for stability of gait Omeprazole added to prevent ulcers with steroids Discuss with your pulmonary doctor on next visit regarding starting antibiotic Bactrim three times a week to prevent PCP infection Discharge Date/Time: 08/12/19 14:44 Discharge Attestations Time Spent in Discharge Care*: greater than 30 min Specific Discharge Activities: Specific discharge activities: educating patient and educating and/or supporting family/caregiver Quality Metrics Clinical Quality Measures During this hospital stay, did patient experience: None Coding Level of Care Code Acute Hairspring Truing Inspector for Stefan Fwrachel Diagnoses COPD exacerbation J44.1 Hypertension I10 Respiratory failure, unspecified with hypercapnia J96.02 Chronicity: acute Laceration of nose S01.21XA Encounter type: initial encounter Falls frequently R29.6 Atrial fibrillation with rapid ventricular response I48.91
[2019-08-12 11:54] LABS: Glucose Point of Care 133 mg/dL (70-110)
== END 2019-08-12 14:44 | disposition home health service (06) | DRG 190 ==
LOC: ER 15:49 → ICU 16:23 → MEDSURG 08-09 16:05
PROVIDERS: Admitting Provider Student in an Organized Health Care Education/Training Program; Emergency Provider Emergency Medicine; Family Provider Nurse Practitioner Family; Visit Provider Student in an Organized Health Care Education/Training Program
DX: J44.1 Chronic obstructive pulmonary disease with (acute) exacerbation (principal); J96.02 Acute respiratory failure with hypercapnia; Z99.81 Dependence on supplemental oxygen; Z79.52 Long term (current) use of systemic steroids; I10 Essential (primary) hypertension; Z96.641 Presence of right artificial hip joint; F17.210 Nicotine dependence, cigarettes, uncomplicated; S01.21XA Laceration without foreign body of nose, initial encounter; W19.XXXA Unspecified fall, initial encounter; Y93.9 Activity, unspecified; Y92.9 Unspecified place or not applicable; R26.81 Unsteadiness on feet; Z66 Do not resuscitate; M25.552 Pain in left hip; M25.551 Pain in right hip; M16.12 Unilateral primary osteoarthritis, left hip; I48.91 Unspecified atrial fibrillation; Z79.51 Long term (current) use of inhaled steroids
CPT/HCPCS: 12011; 12345; 36415; 36416; 36600; 70450; 71045; 73521; 73522; 80051; 80053; 82803; 82810; 82962; 83605; 83880; 83986; 84145; 84484; 85025; 87040; 87635; 87804; 90471; 90715; 93005; 94640; 94660; 94664; 94762; 96372; 96375; 97116; 97161; 97530; 99282; J1650; J1815; J1940; J2543; J2920; J2930; J3490; J3535; J7512; J7626

== ENCOUNTER 2019-10-13 08:51 | Outpatient (CLI) | payer MEDICARE, SELFPAY ==
--- NOTE | 2019-10-13 08:45 | USCV_ITS ---
Jh Petit Age: 58 Gender: M : 1960 Exam Date: 10/13/2019 09:21 Ordering Phys: Karin Day MD ([email or web address]) Technologist: Jen Allison [place] [facility] [place]: AFIB BP: 131 / 66 HR: 77 Rhythm: Other Technical Quality: Fair MEASUREMENTS (Male / Female) Normal Values 2D ECHO LV Diastolic Diameter PLAX 5.3 cm 4.2 - 5.9 / 3.9 - 5.3 cm LV Systolic Diameter PLAX 3.3 cm LV Chamber Size 4.6 cm IVS Diastolic Thickness 0.9 cm 0.6 - 1.0 / 0.6 - 0.9 cm IVS Systolic Thickness 1.4 cm LVPW Diastolic Thickness 0.7 cm 0.6 - 1.0 / 0.6 - 0.9 cm LVPW Systolic Thickness 1.3 cm RV Chamber Size 3.7 cm LVOT Diameter 2.0 cm LV Ejection Fraction 2D Teich 66.7 % LV Ejection Fraction MOD 2C 63.2 % LV Ejection Fraction 2C AL 63.1 % LA Diameter 4.6 cm LA Width 3.4 cm LA Height 5.3 cm RA Width 3.5 cm RA Height 5.0 cm Aorta at Sinotubular Diameter 2.7 cm M-MODE LV Diastolic Diameter MM 7.4 cm 4.2 - 5.9 / 3.9 - 5.3 cm LV Systolic Diameter MM 5.1 cm LV Ejection Fraction MM Teich 57.0 % IVS Diastolic Thickness MM 2.0 cm 0.6 - 1.0 / 0.6 - 0.9 cm IVS Systolic Thickness MM 2.0 cm LVPW Diastolic Thickness MM 1.1 cm 0.6 - 1.0 / 0.6 - 0.9 cm LVPW Systolic Thickness MM 1.7 cm Aortic Annulus Diameter 3.0 cm LA Ao Ratio MM 1.5 MV E Point Septal Separation 1.1 cm DOPPLER AV Peak Velocity 172.0 cm/s LVOT Peak Velocity 135.0 cm/s AV Area Cont Eq vti 2.4 cm squared AV Area Cont Eq pk 2.6 cm squared MV Area PHT 3.7 cm squared Mitral E to A Ratio 0.9 MV E' Velocity 12.0 cm/s Mitral E to MV E' Ratio 5.9 Mitral E to LV E' Lateral Ratio 5.1 Mitral E to LV E' Septal Ratio 7.1 TR Peak Velocity 240.1 cm/s TR Peak Gradient 23.1 mmHg TR Mean Velocity 181.2 cm/s TR Mean Gradient 14.0 mmHg TR Velocity Time Integral 60.4 cm TV Peak E Velocity 35.0 cm/s Right Atrial Pressure 8.0 mmHg Pulmonary Artery Systolic Pressu 31.1 mmHg PV Peak Velocity 52.0 cm/s FINDINGS Left Ventricle Normal left ventricular size, systolic function and wall thickness, with no regional wall motion abnormalities. Left ventricular ejection fraction is estimated at 65%. Normal diastolic function. Right Ventricle Normal right ventricular size and systolic function. Right ventricular systolic pressure 31.1 mmHg. Right Atrium Normal right atrial size. Right atrial pressure estimated at 3 mmHg. Left Atrium Normal left atrial size. Mitral Valve Structurally normal mitral valve. No significant mitral valve regurgitation. Aortic Valve Aortic valve not well visualized. No aortic valve stenosis. No aortic valve regurgitation. Tricuspid Valve Structurally normal tricuspid valve. Trace to mild tricuspid valve regurgitation. Pulmonic Valve Pulmonic valve not well visualized. Pericardium No pericardial effusion. Aorta Aorta not well visualized. CONCLUSIONS 1. Normal left ventricular size, systolic function and wall thickness, with no regional wall motion abnormalities. Left ventricular ejection fraction is estimated at 65%. Normal diastolic function. 2. Normal right ventricular size and systolic function. 3. No significant valvular normality. 4. Pulmonary artery pressure estimated at 31 mmHg. 5. No prior similar studies to compare. Karin Day MD (Electronically Signed) Final Date: 16 October 2019 13:02 S
== END 2019-10-13 08:52 | disposition home or self-care (01) ==
LOC: US 08:54
PROVIDERS: PCP Nurse Practitioner Family; Visit Provider Internal Medicine Cardiovascular Disease
DX: I48.91 Unspecified atrial fibrillation (principal)
CPT/HCPCS: 93306

== ENCOUNTER → 2019-10-19 15:02 | Outpatient (BNVA) | payer MEDICARE, SELFPAY | PROVIDERS: PCP Nurse Practitioner Family; Visit Provider Internal Medicine Cardiovascular Disease | DX: I48.91 Unspecified atrial fibrillation (principal) | CPT/HCPCS: 80048; 80162; 83735; 83880 ==